=== PATIENT | female | born 1995 ===

== ENCOUNTER 2020-12-05 11:15 | Emergency (ER) | payer MEDICAID ==
[~2020-12-05] VITALS: Ht 165.1 cm; Wt 117.9 kg
[2020-12-05 12:02] VITALS: BP 154/98
== END 2020-12-05 13:17 | disposition home or self-care (01) ==
LOC: ER 11:15
DX: S52.502A Unspecified fracture of the lower end of left radius, initial encounter for closed fracture (principal); S52.602A Unspecified fracture of lower end of left ulna, initial encounter for closed fracture; V00.131A Fall from skateboard, initial encounter; Y93.51 Activity, roller skating (inline) and skateboarding; Y92.89 Other specified places as the place of occurrence of the external cause; Y99.8 Other external cause status
CPT/HCPCS: 29125